=== PATIENT | male | born 1950 | race Caucasian/White ===

== ENCOUNTER 2017-02-26 08:30 | Outpatient (CLI) | payer MEDICARE, OTHER ==
[2017-02-26 11:16] LABS: Anion Gap 13 mmol/L (10-20); BUN (Urea Nitrogen) 20 mg/dL (8.4-25.7); Calc. Creatinine Clearance 0 mL/min (70-130); Calcium 9.1 mg/dL (7.8-10.44); Carbon Dioxide 25 mmol/L (23-31); Chloride 104 mmol/L (98-107); Estimated GFR-MDRD Greater than 90
== END 2017-02-26 08:31 | disposition home or self-care (01) ==
LOC: LABBT 08:30
PROVIDERS: ATTEND Surgery
DX: Z01.818 Encounter for other preprocedural examination (principal); K40.20 Bilateral inguinal hernia, without obstruction or gangrene, not specified as recurrent
CPT/HCPCS: 80048; 93005; 93010

== ENCOUNTER 2017-03-02 09:32 | Day surgery (SDC) | payer MEDICARE, OTHER ==
[2017-02-26 08:44] VITALS: BMI 25.7
[2017-03-02] MEDS ORDERED: CEFAZOLIN/Water 2 GM/20 ML SYRINGE ONE (10:06)
[2017-03-02] MEDS ORDERED: Fentanyl 100 MCG/2 ML VIAL ONE (10:47)
[2017-03-02] MEDS ORDERED: Bupivacaine/Epinephrine 0.25% 30 ML VIAL ONE (11:40)
[2017-03-02] MEDS ORDERED: Lidocaine 1% PF 5 ML VIAL ONE (12:12)
[2017-03-02] MEDS ORDERED: Propofol 200 MG/20 ML VIAL ONE (12:12)
[2017-03-02] MEDS ORDERED: Ondansetron HCl/PF 4 MG/2 ML Vial ONE (12:12)
[2017-03-02] MEDS ORDERED: Metoclopramide HCl 10 MG/2 ML VIAL ONE (12:12)
[2017-03-02] MEDS ORDERED: Ketorolac Tromethamine 30 MG/ML VIAL ONE (12:12)
[2017-03-02] MEDS ORDERED: Dexamethasone 20 MG/5 ML VIAL ONE (12:12)
[2017-03-02] MEDS ORDERED: Bupivacaine PF 0.5% 30 ML VIAL ONE (12:14)
--- NOTE | 2017-03-02 18:39 | OP ---
DATE OF SERVICE: 03/02/2017 PREOPERATIVE DIAGNOSIS: Bilateral inguinal hernia. POSTOPERATIVE DIAGNOSIS: Bilateral inguinal hernia. PROCEDURE: Bilateral inguinal hernia repair with mesh Prolene, the PHS extended. SURGEON: Girish Hamilton M.D. ANESTHESIA: General. ESTIMATED BLOOD LOSS: Minimal. COMPLICATIONS: None. FINDINGS: Bilateral indirect inguinal hernias. TECHNIQUE: The patient was taken to the operating room and placed supine on the operating room table . After general anesthetic was obtained, bilateral groins were shaved, prepped and draped in a steri le fashion. Oblique incisions were made above the pubic tubercle in the bilateral groin. Cautery di ssected down through Jarrett's to expose the external oblique. External oblique fibers were opened al odette the course to the external ring. Contents of the inguinal canal were dissected from the backside of the external oblique bilaterally. Ilioinguinal nerve was found and segmentally high removed bila terally to prevent postoperative pain. Cord structures were mobilized using a [place] drain on the p ubic tubercle on the right and left, they were found to be an indirect hernia sacs were resected away from the other cord structures. A high ligation was performed after the sac was opened to reveal no obvious intraabdominal contents. The stump was inverted back into the internal ring. The preperito song space was bluntly dissected through the internal ring. The PHS extended mesh was brought into t he sterile field. The underlay was placed in the preperitoneal space through the internal ring, its fibers laid out flat against the posterior abdominal wall. The overlay was laid in the floor of the inguinal canal. The overlay in the bilateral groin is cut to incorporate the internal ring. The riya ateral mesh was sewn to the floor of the inguinal canal distally to the pubic tubercle, medially to t he transverse arch, laterally to the shelving edge of inguinal ligament using permanent braided sutur e. The two ends of cut mesh reapproximated at the internal ring to reform the internal ring. The ex tra mesh was tucked back under the external oblique proximally. The bilateral groins were irrigated. There was no ongoing bleeding. Tunneled catheter for postop pain control was threaded from above b oth incisions and left on top of the mesh. External oblique and Jarrett's was closed bilaterally usin g 0 Vicryl suture. Skin was bilaterally closed using 4-0 Monocryl and Dermabond. The patient was en route to recovery in stable condition. All instrument counts, needle counts, and lap counts were co rrect.
== END 2017-03-02 14:53 | disposition home or self-care (01) ==
LOC: SDC 09:32
PROVIDERS: ATTEND Surgery
PROC: 0YUA0JZ Supplement Bilateral Inguinal Region with Synthetic Substitute, Open Approach (ICD-10-PCS; principal; 2017-03-02)
DX: K40.20 Bilateral inguinal hernia, without obstruction or gangrene, not specified as recurrent (principal); E78.5 Hyperlipidemia, unspecified; J30.2 Other seasonal allergic rhinitis; E11.9 Type 2 diabetes mellitus without complications; E03.9 Hypothyroidism, unspecified; Z79.4 Long term (current) use of insulin; Z79.899 Other long term (current) drug therapy; Z88.8 Allergy status to other drugs, medicaments and biological substances; Z90.89 Acquired absence of other organs; Z90.79 Acquired absence of other genital organ(s); Z98.890 Other specified postprocedural states; Z85.46 Personal history of malignant neoplasm of prostate; Z87.891 Personal history of nicotine dependence
CPT/HCPCS: 49505; A4306 ×2; C1781; J1100; J1885; J2001; J2405; J2704; J2765; J3010; S0020

== ENCOUNTER 2020-09-26 07:37 | Outpatient (CLI) | payer MEDICARE | END 2020-09-26 07:38 | disposition home or self-care (01) | LOC: ULT 07:37 → BICULT 07:38 | PROVIDERS: ATTEND Student in an Organized Health Care Education/Training Program | DX: Z13.6 Encounter for screening for cardiovascular disorders (principal) | CPT/HCPCS: 76775 ==

== ENCOUNTER 2020-10-17 06:13 | Day surgery (SDC) | payer MEDICARE ==
[2020-10-16 09:46] VITALS: BMI 23.5
[2020-10-17] MEDS ORDERED: PROPOFOL 200 MG/20 ML VIAL ONE (08:30)
== END 2020-10-17 10:05 | disposition home or self-care (01) ==
LOC: SDC 06:13
PROVIDERS: ATTEND Internal Medicine Gastroenterology
PROC: 0DBM8ZX Excision of Descending Colon, Via Natural or Artificial Opening Endoscopic, Diagnostic (ICD-10-PCS; principal; 2020-10-17)
DX: Z12.11 Encounter for screening for malignant neoplasm of colon (principal); K63.5 Polyp of colon; K64.9 Unspecified hemorrhoids; Z79.4 Long term (current) use of insulin; Z79.899 Other long term (current) drug therapy; Z88.8 Allergy status to other drugs, medicaments and biological substances
CPT/HCPCS: 88305; J2704

== ENCOUNTER 2023-01-16 09:38 | Observation (INO) | payer MEDICARE ==
[~2023-01-16 09:38] MED LIST: mitoMYcin 40 MG in Sterile Water 20 ML I-VESIC SCH; mitoMYcin 40 MG in Sterile Water 20 ML IV SCH
[2023-01-16] MEDS ORDERED: LevoFLOXacin 500 mg/D5W 100 ML BAG ONE (09:55)
[2023-01-16] MEDS ORDERED: fentaNYL PF 100 MCG/2 ML SYRINGE ONE (10:12)
[2023-01-16] MEDS ORDERED: Ondansetron PF 4 MG/2 ML Vial ONE (10:42)
[2023-01-16] MEDS ORDERED: ePHEDrine Sulfate 50 MG/10 ML VIAL ONE (10:42)
[2023-01-16] MEDS ORDERED: Rocuronium Bromide 10 MG/ML (10ML VIAL) ONE (10:42)
[2023-01-16] MEDS ORDERED: Lidocaine 1% PF 5 ML VIAL ONE (10:42)
[2023-01-16] MEDS ORDERED: PROPOFOL 200 MG/20 ML VIAL ONE (10:42)
[2023-01-16] MEDS ORDERED: SUGAMMADEX SODIUM 200 MG/2 ML VIAL ONE (11:43)
[2023-01-16] MEDS ORDERED: HYDROcodone/Acetaminophen 5/325 mg Tablet PO PRN ×2 (12:19)
[2023-01-16] MEDS ORDERED: Dextrose 5% in Water 1,000 ML IV PRN (12:19)
[2023-01-16] MEDS ORDERED: Bisacodyl 10 MG SUPP PR PRN (12:19)
[2023-01-16] MEDS ORDERED: Glucagon 1 MG/ML KIT IM PRN (12:19)
[2023-01-16] MEDS ORDERED: Mag-Al 1200 mg/1200 mg/30 ML UDCUP PO PRN (12:19)
[2023-01-16] MEDS ORDERED: Morphine 2 MG/ML VIAL SLOW IVP PRN (12:19)
[2023-01-16] MEDS ORDERED: Insulin Regular 300 UNITS/3 ML VIAL SC PRN (12:19)
[2023-01-16] MEDS ORDERED: Morphine 4 MG/ML VIAL SLOW IVP PRN (12:19)
[2023-01-16] MEDS ORDERED: Dextrose 50% Abboject 50 ML SYRINGE SLOW IVP PRN (12:19)
[2023-01-16] MEDS ORDERED: Hyoscyamine SL 0.125 MG TAB SL PRN (12:19)
[2023-01-16] MEDS ORDERED: HumaLOG 300 UNITS/3 ML VIAL SC PRN (12:22)
[2023-01-16] MEDS ORDERED: [UNRECOGNIZED DRUG - SUPPLY] SC PRN (12:53)
[2023-01-16] MEDS ORDERED: fentaNYL 50 mcg/mL 1 mL Vial ONE ×2 (12:57→13:40)
[2023-01-16] MEDS ORDERED: Hyoscyamine SL 0.125 MG TAB ONE (13:41)
[2023-01-16 15:53] VITALS: BMI 22.1
[2023-01-16] MEDS ORDERED: Lisinopril 2.5 MG TAB PO SCH (21:00)
[2023-01-16] MEDS ORDERED: Rosuvastatin 20 MG TAB PO SCH (21:00)
[2023-01-16] MEDS ORDERED: GLUCOSAMINE HCL 1500 MG PO SCH (21:00)
[2023-01-16] MEDS: Docusate 100 MG CAP PO SCH (21:09)
[2023-01-16] MEDS: Icosapent Ethyl 1 GM CAPSULE PO SCH (21:10)
[2023-01-16] MEDS: metFORMIN 500 MG TAB PO SCH (21:10)
[2023-01-17 05:35] LABS: #Eosinphils 0.1 thou/uL (0.0-0.7); #Neutrophils 6.2 thou/uL (1.40-6.50); %Basophils 0.5 % (0.0-1.0); %Eosinophils 1.6 % (0.0-10.0); %Lymphocytes 15.5 % (21.0-51.0); %Monocytes 11.7 % (0.0-10.0); %Neutrophils 70.4 % (42.0-75.0); Hematocrit 43.4 % (42.0-52.0); Hemoglobin 14.7 g/dL (14.0-18.0); Mean Corpuscular HGB CONC 33.9 g/dL (32.0-36.0); Mean Corpuscular Hemoglobin 31.5 pg (27.0-31.0); Mean Corpuscular Volume 92.9 fl (78.0-98.0); Mean Platelet Volume 9.3 fL (7.4-10.4); Platelet Count 203 10x3/uL (130-400); RBC Distribution Width 12.2 % (11.5-14.5); Red Blood Cell (RBC) Count 4.67 mill/uL (4.70-6.10); White Blood Cell (WBC) Count 8.9 10x3/uL (4.8-10.8)
[2023-01-17] MEDS ORDERED: Levothyroxine Sodium 25 MCG TAB PO SCH (06:00)
[2023-01-17] MEDS ORDERED: Levothyroxine Sodium 112 MCG TAB PO SCH (06:00)
[2023-01-17 06:02] LABS: Anion Gap 13 mmol/L (10-20); BUN (Urea Nitrogen) 15 mg/dL (8.4-25.7); Calc. Creatinine Clearance 78 mL/min (70-130); Calcium 8.9 mg/dL (7.8-10.44); Carbon Dioxide 25 mmol/L (23-31); Chloride 106 mmol/L (98-107); Estimated GFR 92; Glucose 120 mg/dL (83-110); Potassium 3.7 mmol/L (3.5-5.1); Sodium 140 mmol/L (136-145)
[2023-01-17] MEDS: Docusate 100 MG CAP PO SCH (08:31)
[2023-01-17] MEDS: metFORMIN 500 MG TAB PO SCH (08:31)
[2023-01-17] MEDS: Icosapent Ethyl 1 GM CAPSULE PO SCH (08:32)
[2023-01-17] MEDS ORDERED: Oxybutynin ER 5 MG TAB PO SCH (09:00)
[2023-01-17] MEDS ORDERED: Empagliflozin 10 MG TAB PO SCH (09:00)
[2023-01-17] MEDS ORDERED: Loratadine 10 MG TAB PO SCH (09:00)
[2023-01-17] MEDS ORDERED: Non-Formulary Item 1 EACH (Levothyroxine Sodium [Synthroid] 137 MCG Tablet) PO SCH (09:00)
[2023-01-17] MEDS ORDERED: LevoFLOXacin 500 mg/D5W 500 MG in Premix Bag 1 BAG IVPB SCH (10:00)
[2023-01-17 12:45] VITALS: BP 108/67; TEMP 97.6
== END 2023-01-17 13:30 | disposition home or self-care (01) ==
LOC: SDC 09:38 → SURG A 12:19
PROVIDERS: ADMIT Urology; ATTEND Urology
PROC: 0TBB8ZZ Excision of Bladder, Via Natural or Artificial Opening Endoscopic (ICD-10-PCS; principal; 2023-01-16)
DX: C67.9 Malignant neoplasm of bladder, unspecified (principal); N32.89 Other specified disorders of bladder; E11.9 Type 2 diabetes mellitus without complications; E03.9 Hypothyroidism, unspecified; I45.10 Unspecified right bundle-branch block; E78.5 Hyperlipidemia, unspecified; C61 Malignant neoplasm of prostate; M17.0 Bilateral primary osteoarthritis of knee; H26.9 Unspecified cataract; Z90.89 Acquired absence of other organs; Z98.890 Other specified postprocedural states; Z87.891 Personal history of nicotine dependence; Z88.8 Allergy status to other drugs, medicaments and biological substances; Z88.6 Allergy status to analgesic agent; Z79.4 Long term (current) use of insulin; Z79.84 Long term (current) use of oral hypoglycemic drugs; Z79.899 Other long term (current) drug therapy
CPT/HCPCS: 52235; 80048; 85025; J3010; J9280; 36415; 88307; J1956; J2405; J2704

== ENCOUNTER 2023-02-17 07:56 | Outpatient (CLI) | payer MEDICARE ==
[2023-02-17] MEDS ORDERED: Iopamidol 370 76% 100 ML VIAL ONE (11:34)
== END 2023-02-17 07:57 | disposition home or self-care (01) ==
LOC: NM 07:56
PROVIDERS: ATTEND Internal Medicine Hematology & Oncology
DX: C67.8 Malignant neoplasm of overlapping sites of bladder (principal); R91.8 Other nonspecific abnormal finding of lung field; R94.8 Abnormal results of function studies of other organs and systems
CPT/HCPCS: 71260; 78306; 82565; A9503

== ENCOUNTER 2023-02-20 10:54 | Day surgery (SDC) | payer MEDICARE ==
[2023-02-19 12:23] VITALS: BMI 24.4
[2023-02-20] MEDS ORDERED: Ketorolac Tromethamine 30 MG/ML VIAL ONE (12:53)
[2023-02-20] MEDS ORDERED: Acetaminophen 500 MG TAB ONE (12:54)
[2023-02-20] MEDS ORDERED: fentaNYL PF 100 MCG/2 ML SYRINGE ONE (14:13)
[2023-02-20] MEDS ORDERED: Propofol 500 MG/50 ML VIAL ONE (14:13)
[2023-02-20] MEDS ORDERED: EPINEPHrine 1 MG/ML VIAL ONE (14:14)
[2023-02-20] MEDS ORDERED: Lidocaine 1% (PF) 30 ML VIAL ONE ×2 (14:15→14:16)
[2023-02-20] MEDS ORDERED: Bupivacaine 0.25% HCL 30 ML VIAL ONE ×2 (14:15→14:20)
[2023-02-20] MEDS ORDERED: Sodium Chloride 0.9% 100 ML ONE (14:22)
[2023-02-20] MEDS ORDERED: CEFAZOLIN 2 GM VIAL ONE (14:22)
[2023-02-20] MEDS ORDERED: Lidocaine 1% PF 5 ML VIAL ONE (14:28)
[2023-02-20] MEDS ORDERED: PROPOFOL 200 MG/20 ML VIAL ONE (14:28)
== END 2023-02-20 16:01 | disposition home or self-care (01) ==
LOC: SDC 10:54
PROVIDERS: ATTEND Specialist
PROC: 0JH60WZ Insertion of Totally Implantable Vascular Access Device into Chest Subcutaneous Tissue and Fascia, Open Approach (ICD-10-PCS; principal; 2023-02-20)
DX: C67.9 Malignant neoplasm of bladder, unspecified (principal); E11.9 Type 2 diabetes mellitus without complications; E03.9 Hypothyroidism, unspecified; Z96.41 Presence of insulin pump (external) (internal); Z79.84 Long term (current) use of oral hypoglycemic drugs; Z79.890 Hormone replacement therapy; Z90.89 Acquired absence of other organs
CPT/HCPCS: 36561; 71045; 82962; C1788; J0171; 36416; J1642; J1885; J2001; J2704; J3490; S0020

== ENCOUNTER 2023-09-21 09:21 | Outpatient (CLI) | payer MEDICARE ==
[2023-09-21] MEDS ORDERED: Iopamidol 370 76% 100 ML VIAL ONE (10:22)
== END 2023-09-21 09:22 | disposition home or self-care (01) ==
LOC: BICCT 09:21
PROVIDERS: ATTEND Internal Medicine Hematology & Oncology
DX: C67.8 Malignant neoplasm of overlapping sites of bladder (principal); R91.8 Other nonspecific abnormal finding of lung field; K59.00 Constipation, unspecified; K94.09 Other complications of colostomy; Z90.6 Acquired absence of other parts of urinary tract
CPT/HCPCS: 71270; 74178

== ENCOUNTER 2024-02-19 08:10 | Outpatient (CLI) | payer MEDICARE ==
[2024-02-19] MEDS ORDERED: Iopamidol 370 76% 100 ML VIAL ONE (14:46)
== END 2024-02-19 08:11 | disposition home or self-care (01) ==
LOC: BICCT 08:10
PROVIDERS: ATTEND Internal Medicine Hematology & Oncology
DX: C67.8 Malignant neoplasm of overlapping sites of bladder (principal); K80.20 Calculus of gallbladder without cholecystitis without obstruction; K59.00 Constipation, unspecified; N99.518 Other cystostomy complication; R91.8 Other nonspecific abnormal finding of lung field; Z90.6 Acquired absence of other parts of urinary tract
CPT/HCPCS: 71250; 74178; Q9967